=== PATIENT | female | born 1990 | race Hispanic/Latino ===

== ENCOUNTER 2021-12-13 09:53 | Emergency (ER) | payer SELFPAY ==
[2021-12-13 10:40] LABS: Urine Blood 1+ (Negative); Urine Glucose Negative (Negative); Urine Protein Negative (Negative); Urine Specific Gravity >=1.030 (1.005-1.030); Urine pH 5.5 (5.0-7.0)
--- NOTE | 2021-12-13 11:12 | RAD REPORT ---
EXAM DESCRIPTION: RAD - Chest Pa And Lat (2 Views) - 12/13/2021 11:06 am CLINICAL HISTORY: SOB COMPARISON: No comparisons FINDINGS: Lines: None. Lungs: No evidence of edema or pneumonia. Pleural: No significant pleural effusions or pneumothorax. Cardiac: The heart size is within normal limits. Bones: No acute fractures. Other: IMPRESSION: No acute cardiopulmonary disease.
--- NOTE | 2021-12-13 14:16 | RAD REPORT ---
EXAM DESCRIPTION: CT - Stone Protocol - 12/13/2021 2:08 pm CLINICAL HISTORY: Abdominal pain. Back COMPARISON: None. TECHNIQUE: Computed axial tomography of the abdomen pelvis was obtained without oral or IV contrast. Lack of IV and oral contrast limits evaluation of solid organs, bowel, and vessels. Coronal reformat thang images were obtained and reviewed. All CT scans are performed using dose optimization technique as appropriate and may include automated exposure control or mA/KV adjustment according to patient size. FINDINGS: Tiny bilateral renal calculi. No hydronephrosis. An ureteral calculus is not noted. A blad rm calculus is not present. The liver, spleen, pancreas and adrenals appear grossly normal There is no evidence of diverticulitis. The appendix appears normal Small umbilical hernia IMPRESSION: Tiny bilateral nonobstructing renal calculi
[2021-12-13 14:35] LABS: Absolute Lymphocytes (CBC) 1.8 K/uL (0.7-4.9); Hematocrit 36.7 % (36.0-45.0); Lymphocytes % 29.2 % (15.3-44.8); MCV 79.6 fL (80-100); MPV 8.1 fL (7.6-11.3); RBC Red Blood Cell Count 4.61 M/uL (3.86-4.86)
[2021-12-13 14:54] LABS: Albumin 3.6 g/dL (3.4-5.0); Bilirubin Total 0.5 mg/dL (0.2-1.0); Potassium 3.7 mmol/L (3.5-5.1); Protein, Total 7.5 g/dL (6.4-8.2)
[2021-12-13] MEDS ORDERED: CYCLOBENZAPRINE 10 MG TAB ONE (15:46)
[2021-12-13] MEDS ORDERED: KETOROLAC 30 MG/ML INJ ONE (15:46)
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
[2021-12-13 17:44] VITALS: TEMP 97.7; O2SAT 100
[2021-12-13 17:50] VITALS: BP 105/61
== END 2021-12-13 17:09 | disposition home or self-care (01) ==
LOC: ER 09:53
DX: M54.50 Low back pain, unspecified (principal); R05.9 Cough, unspecified
CPT/HCPCS: 36415; 71046; 74176; 76377; 80053; 81003; 81025; 83690; 85025; 87070; 87081; 87804; 96374; 99284; U0003

== ENCOUNTER 2022-02-22 17:13 | Emergency (ER) | payer SELFPAY ==
--- OUTSIDE RECORDS SUMMARY | 2022-02-22 17:27 | XMS REPORT | Continuity of Care Document ---
:1990 Author Organization [facility] t Address [address] [place] [address] Care Team Providers Name Role Phone Laya Mart Primary Care Physician [phone] Tamara Mckeon Attending Clinician [phone] Payers Payer Name Policy Type Policy Number Effective Date Expiration Date S ource Problems Condition Condition Condition Status Onset Resolution Last Treating Co mments Source Name Details Category Date Date Treatment Clinician Date Supervisio Supervisio Disease Active 2021-0 U nivers n of n of 09 [place] [facility] Multiparit Multiparit Disease Active 2021-0 U nivers y y 9-09 ity of 00:00: [address] COVID-19 COVID-19 Disease Active 2019-0 Unive rs virus virus 8-17 [place] [address] [place] [address] Overweight Overweight Disease Active 2020-0 U nivers 5-18 ity of 00:00: [address] Allergies, Adverse Reactions, Alerts This patient has no known allergies or adverse reactions. Social History Social Habit Start Date Stop Date Quantity Comments Source ASSERTION 2021-12-11 University of 00:00:00 [facility] Exposure to 2022-02-11 2022-02-21 Not sure University of SARS-CoV-2 00:00:00 09:44:00 [facility] (event) Branch Tobacco use and 2022-02-21 2022-02-21 Smokeless tobacco Un iversity of exposure 00:00:00 00:00:00 non-user [facility] Alcohol intake 2022-02-21 2022-02-21 Current University 00:00:00 00:00:00 non-drinker of [facility] alcohol (finding) Branch Sex Ass[birth year] At [birth year] Universit y of 00:00:00 00:00:00 [facility] Smoking Status Start Date Stop Date Source Never smoked tobacco [facility] Medications Ordered Filled Start Stop Current Ordering Indication Dosage Frequency Signature Comments Components Source Medication Medication Date Date Medication? Clinician (SIG) Name Name 2021- No [id number] 1{tbl} Take 1 Univers vitamin 02-12 tablet by ity of w/FA tablet [place] daily. Medical [place] docusate 2021- No [id number] 240mg Take 1 Univers calcium 240 02-12 capsule by i ty of mg capsule 00:00: 00:00 mouth once [place] 00 :00 daily as Medical needed for Branch Constipati on. ferrous 2021- No [id number] 325mg Take 1 U nivers sulfate 325 02-12 tablet by it y of mg (65 mg 00:00: 00:[place] iron[place] 00 :00 (two) Medical tablet times Branch daily. ibuprofen 2021- No [id number] 600mg Take 1 Univers 600 mg 02-12 tablet by ity of tablet 00:00: 00:00 mouth [place] 00 :00 every 6 Medical (six) Branch hours as needed (Pain). Take with food or milk. Immunizations Ordered Filled Immunization Date Status Comments Sourc e Immunization Name Name TDAP 2019-11-28 Completed University 00:00:00 [facility] Influenza Virus 2019-07-11 Completed Universit y of Vaccine Quad .5 mL 00:00:00 [facility] IM 6+ MO Branch HPV9 2017-10-26 Completed University 00:00:00 [facility] HPV9 2017-05-25 Completed University 00:00:00 [facility] HPV9 2017-04-21 Completed University 00:00:00 [facility] TDAP 2017-02-04 Completed University 00:00:00 [facility] PPD (TB) 2016-11-26 [facility] Vital Signs Vital Name Observation Time Observation Value Comments Source Systolic blood 2022-02-21 14:44:00 117 mm[Hg] Univer sity of pressure [facility] Diastolic blood 2022-02-21 14:44:00 73 mm[Hg] Unive rsity of [facility] Heart rate 2022-02-21 14:44:00 101 /min [facility] Body temperature 2022-02-21 14:44:00 36.28 [facility]ile [facility] Res[facility] rate 2022-02-21 14:44:00 18 /min [facility] Body height 2022-02-21 14:44:00 157.5 cm [facility] Body weight 2022-02-21 14:44:00 72.179 kg [facility] BMI 2022-02-21 14:44:00 29.10 kg/m2 [facility] Procedures Procedure Date / Time Performed Performing Clinician Sourc e POCT TEST 2022-02-21 14:38:00 [facility]/O 2022-02-21 14:38:00 [facility] Start End Encounter Admission Attending Care Care Encounter Source Date/Time Date/Time Type Type Clinicians Facility Department ID 2022-02-21 2022-02-21 Initial Carlitos [facility] [id number] [facility] 09:15:00 10:31:47 Tamara Diop 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 [id number] ity of Visit REGIONAL [id number] Ricardo as MATERNAL [id number] Med ical & CHILD [address] [place] [address] 2020-04-18 2020-04-18 Telephone ADITYA Urbina [id number] 00:00:00 00:00:00 Tamara Diop 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 [id number] REGIONAL [id number] MATERNAL [id number] & CHILD [facility] 2020-03-02 2020-03-02 Routine Akinsipe, [facility] [id number] 08:09:32 08:48:54 Tamara C 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 [id number] Visit [facility] [id number] MATERNAL [id number] & CHILD 107 [facility] Results Test Description Test Time Test Comments Results Result Comments Source POCT TEST 2022-02-21 14:38:00 Test Item Value Reference Range Interpretation Comme nts POCT PREG (test code = 1605) Positive On board controls acceptable with C Line (test code = 3574) Yes POCT PREG LOT # (test code = 3575) POCT PREG TEST DATE (test code = 3576) [facility]/O SPECIFIC [id number] 14:38:00 Test Item Value Reference Range Interpretation Comments POCT PH U (test code = 3254) 5 mg/dl 5-8 POCT U LEUK EST (test code = 2+ Negative - Negative 3263) POCT U NIT (test code = 3262) Neg Negative - Negative POCT U PROT (test code = 3259) 2+ Negative - Negative POCT U GLU (test code = 3256) Neg Negative - Negative POCT U KETONE (test code = 3258) None Negative - Negative POCT U BLD (test code = 3257) Large Negative - Negative [facility]
[2022-02-22 18:50] LABS: Urine Blood 3+ (Negative); Urine Glucose Negative (Negative); Urine Protein 1+ (Negative); Urine Specific Gravity >=1.030 (1.005-1.030); Urine pH 6.5 (5.0-7.0)
[2022-02-22 19:07] LABS: Absolute Lymphocytes (CBC) 1.6 K/uL (0.7-4.9); Hematocrit 35.3 % (36.0-45.0); MCV 79.4 fL (80-100); MPV 7.5 fL (7.6-11.3); RBC Red Blood Cell Count 4.45 M/uL (3.86-4.86)
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
[2022-02-22 20:19] LABS: Potassium 3.6 mmol/L (3.5-5.1)
--- NOTE | 2022-02-22 20:23 | EDPHYS ---
Physician Documentation [facility] Name: Pricila Mendenhall Age: 31 yrs Sex: Female : 1990 Arrival Date: 02/22/2022 Time: 17:15 Bed 18 Private MD: Veto Zambrano HPI: 02/22 18:29 This 31 yrs old Female presents to ER via Ambulatory with complaints of snw Vaginal Bleeding, + Preg <12wks. 18:29 The patient presents with vaginal bleeding that is light. Onset: The symptoms/episode snw began/occurred suddenly, today. Associated signs and symptoms: The patient has no apparent associated signs or symptoms. Severity of symptoms: At their worst the symptoms were mild, moderate. The patient has not experienced similar symptoms in the past. recently seen at [facility] clinic. 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 - Social history:: Smoking status: Patient denies any tobacco usage or history of. Smoking status: . ROS: 18:28 Constitutional: Negative for fever, chills, and weight loss, Eyes: Negative for injury, snw pain, redness, and discharge, ENT: Negative for injury, pain, and discharge, Neck: Negative for injury, pain, and swelling, Cardiovascular: Negative for chest pain, palpitations, and edema, Respiratory: Negative for shortness of breath, cough, wheezing, and pleuritic chest pain, Abdomen/GI: Negative for abdominal pain, nausea, vomiting, diarrhea, and constipation, Back: Negative for injury and pain, MS/Extremity: Negative for injury and deformity, Skin: Negative for injury, rash, and discoloration, Neuro: Negative for headache, weakness, numbness, tingling, and seizure, Psych: Negative for depression, anxiety, suicide ideation, homicidal ideation, and hallucinations. 18:28 : Positive for vaginal bleeding, mild abdominal cramping. Exam: 18:27 Constitutional: This is a well developed, well nourished patient who is awake, alert, snw and in no acute distress. Head/Face: Normocephalic, atraumatic. Eyes: Pupils equal round and reactive to light, extra-ocular motions intact. Lids and lashes normal. Conjunctiva and sclera are non-icteric and not injected. Cornea within normal limits. Periorbital areas with no swelling, redness, or edema. ENT: Nares patent. No nasal discharge, no septal abnormalities noted. Tympanic membranes are normal and external auditory canals are clear. Oropharynx with no redness, swelling, or masses, exudates, or evidence of obstruction, uvula midline. Mucous membranes moist. Neck: Trachea midline, no thyromegaly or masses palpated, and no cervical lymphadenopathy. Supple, full range of motion without nuchal rigidity, or vertebral point tenderness. No Meningismus. Chest/axilla: Normal chest wall appearance and motion. Nontender with no deformity. No lesions are appreciated. Cardiovascular: Regular rate and rhythm with a normal S1 and S2. No gallops, murmurs, or rubs. Normal PMI, no JVD. No pulse deficits. Respiratory: Lungs have equal breath sounds bilaterally, clear to auscultation and percussion. No rales, rhonchi or wheezes noted. No increased work of breathing, no retractions or nasal flaring. Abdomen/GI: Soft, non-tender, with normal bowel sounds. No distension or tympany. No guarding or rebound. No evidence of tenderness throughout. Back: No spinal tenderness. No costovertebral tenderness. Full range of motion. Skin: Warm, dry with normal turgor. Normal color with no rashes, no lesions, and no evidence of cellulitis. MS/ Extremity: Pulses equal, no cyanosis. Neurovascular intact. Full, normal range of motion. Neuro: Awake and alert, GCS 15, oriented to person, place, time, and situation. Cranial nerves II-XII grossly intact. Motor strength 5/5 in all extremities. Sensory grossly intact. Cerebellar exam normal. Normal gait. Psych: Awake, alert, with orientation to person, place and time. Behavior, mood, and affect are within normal limits. Vital Signs: 17:28 BP 125 / 73; Pulse 68; Resp 16; Temp 97.1; Pulse Ox 100% ; kr3 17:36 Weight 72.12 kg; Height 5 ft. 2 in. (157.48 cm); Pain 5/10; kr3 17:36 Body Mass Index 29.08 (72.12 kg, 157.48 cm) kr3 MDM: 17:19 Patient medically screened. snw 20:23 Data reviewed: vital signs, nurses notes. Data interpreted: Pulse oximetry: on room air snw is 100 %. Interpretation: normal. Counseling: I had a detailed discussion with the patient and/or guardian regarding: the historical points, exam findings, and any diagnostic results supporting the discharge/admit diagnosis, lab results, radiology results, the need for outpatient follow up, to return to the emergency department if symptoms worsen or persist or if there are any questions or concerns that arise at home. Special discussion: Based on the history and exam findings, there is no indication for further emergent testing or inpatient evaluation. I discussed with the patient/guardian the need to see the OB Gyne specialist for further evaluation of the symptoms. 02/22 18:21 Order name: Abo/rh Typing; Complete Time: 19:40 snw 02/22 18:21 Order name: Basic Metabolic Panel; Complete Time: 20:21 snw 02/22 18:21 Order name: CBC with Diff; Complete Time: 19:15 snw 02/22 18:21 Order name: Quantitative Hcg; Complete Time: 20:21 snw 02/22 18:50 Order name: Urine Dipstick-Ancillary; Complete Time: 18:51 EDMS 02/22 18:51 Order name: Urine --Ancillary (enter results) eb 02/22 18:21 Order name: IV Saline Lock; Complete Time: 18:53 snw 02/22 18:21 Order name: Labs collected and sent; Complete Time: 18:53 snw 02/22 18:21 Order name: NPO; Complete Time: 18:53 snw 02/22 18:21 Order name: Urine Dipstick-Ancillary (obtain specimen); Complete Time: 18:53 snw 02/22 18:21 Order name: Urine Test (obtain specimen); Complete Time: 18:53 snw 02/22 18:21 Order name: US Transvaginal Ob; Complete Time: 20:10 snw 02/22 21:07 Order name: ABO/RH no charge; Complete Time: 21:10 EDMS Administered Medications: No medications were administered Disposition Summary: 02/22/22 20:22 Discharge Ordered Location: Home snw Condition: Stable snw Diagnosis - Threatened snw Followup: snw - With: Emergency Department - When: As needed - Reason: Worsening of condition Followup: snw - With: Private Physician - When: 2 - 3 days - Reason: Recheck today's complaints, Continuance of care, Re-evaluation by your physician Discharge Instructions: - Discharge Summary Sheet snw - Threatened Miscarriage snw - Vaginal Bleeding During , First Trimester snw Forms: - Medication Reconciliation Form snw - Thank You Letter snw - Antibiotic Education snw - Prescription Opioid Use snw Signatures: Dispatcher [employer] EDMS Makenna Blanton, STRUCTURAL WELDER-C STRUCTURAL WELDER-Csnw Lisbet Robles RN RN kr3
--- NOTE | 2022-02-22 20:23 | ER ---
Nurse's Notes [facility] Name: Pricila Mendenhall Age: 31 yrs Sex: Female : 1990 Arrival Date: 02/22/2022 Time: 17:15 Bed 18 Private MD: Diagnosis: Threatened Presentation: 02/22 17:28 Ebola Screen: Patient denies travel to an Ebola-affected area in the 21 days before kr3 illness onset. Initial Sepsis Screen: Does the patient meet any 2 criteria? No. Patient's initial sepsis screen is negative. Does the patient have a suspected source of infection? No. Patient's initial sepsis screen is negative. Risk Assessment: Do you want to hurt yourself or someone else? Patient reports no desire to harm self or others. 17:28 Method Of Arrival: Ambulatory kr3 17:28 Acuity: YUNIOR 3 kr3 17:29 Chief complaint: Patient states: Approximate 6 weeks . Vaginal bleeding started kr3 yesterday. No fever. G3, P2. Coronavirus screen: Client denies travel out of the [place] in the last 14 days. At this time, the client does not indicate any symptoms associated with coronavirus-19. 17:36 Coronavirus screen: Vaccine status: Patient reports being unvaccinated. Onset of kr3 symptoms was February 21, 2022. Triage Assessment: 17:31 General: Appears uncomfortable, Behavior is calm, cooperative, appropriate for age. kr3 Pain: Complains of pain in pelvis Quality of pain is described as aching, crampy. GI: Reports cramping. : Reports cramping, vaginal bleeding that is. LEAD COOK: 18:29 3, Full Term 2, Verified snw Historical: - Allergies: 17:39 No Known Allergies; kr3 - PMHx: 17:39 None; kr3 - PSHx: 17:39 None; kr3 - Immunization history:: Adult Immunizations up to date, Client reports having NOT received the Covid vaccine. - Social history:: Smoking status: Patient denies any tobacco usage or history of. Smoking status: . Screenin:00 Abuse screen: Denies threats or abuse. Nutritional screening: No deficits noted. ke1 Tuberculosis screening: No symptoms or risk factors identified. Fall Risk None identified. Vital Signs: 17:28 BP 125 / 73; Pulse 68; Resp 16; Temp 97.1; Pulse Ox 100% ; kr3 17:36 Weight 72.12 kg; Height 5 ft. 2 in. (157.48 cm); Pain 5/10; kr3 17:36 Body Mass Index 29.08 (72.12 kg, 157.48 cm) kr3 ED Course: 17:15 Patient arrived in ED. mr 17:18 Makenna Blanton FNP-C is [facility]. snw 17:18 Veto Tyler MD is Attending Physician. snw 17:28 Arm band placed on. kr3 17:29 Triage completed. kr3 18:00 Patient placed in an exam room, on a stretcher. kr3 18:52 Inserted saline lock: 20 gauge in right antecubital area, using aseptic technique. Blood collected. 18:52 Urine --Ancillary (enter results) Sent. 18:53 Abo/rh Typing Sent. 18:53 Basic Metabolic Panel Sent. 18:53 CBC with Diff Sent. 18:53 Quantitative Hcg Sent. 19:04 Urine --Ancillary (enter results) Sent. [facility] 19:04 Urine collected: clean catch specimen, cloudy. 5 19:05 Patient has correct armband on for positive identification. Bed in low position. Call 5 light in reach. Side rails up X 1. Warm blanket given. Pulse ox on. NIBP on. 19:38 US Transvaginal Ob In Process Unspecified. EDNY 19:51 Roberta Howard, BRIJESH is Primary Nurse. ke1 21:00 No provider procedures requiring assistance completed. IV discontinued. ke1 Administered Medications: No medications were administered Medication: 21:20 VIS not applicable for this client. ke1 Outcome: 20:22 Discharge ordered by . snw 21:00 Discharged to home ambulatory. ke1 21:00 Condition: good 21:00 Discharge instructions given to patient. 21:21 Patient left the ED. ke1 Signatures: Dispatcher [employer] EDNY Makenna Blanton FNP-C FREIGHT TALLIER-Csnw Rubi Rose Maria 5 Roberta Howard RN RN ke1 [place] Kelley, RN RN kr3 Corrections: (The following items were deleted from the chart) 17:39 17:29 Chief complaint: Patient states: weeks . Vaginal bleeding started. No kr3 fever. G, P kr3
[2022-02-22 23:41] VITALS: BP 125/73; TEMP 97.1; O2SAT 100
== END 2022-02-22 21:21 | disposition home or self-care (01) ==
LOC: ER 17:13
DX: O20.0 Threatened abortion (principal)
CPT/HCPCS: 36415; 76817; 80048; 81003; 81025; 84702; 85025; 86900; 86901; 99284